=== PATIENT | male | born 1965 | race Two or more races ===

== ENCOUNTER 2024-05-16 09:50 | Inpatient (IN) | payer OTHER ==
[~2024-05-16] VITALS: Ht 172.7 cm; Wt 70.8 kg
[2024-05-16 10:31] LABS: BASOPHILS % (AUTO) 0.4 % (0.0-2.0); EOSINOPHILS # (AUTO) 0.1 K/uL (0.0-0.7); EOSINOPHILS % (AUTO) 0.8 % (0.0-6.0); HEMATOCRIT 45 % (39-51); HEMOGLOBIN 15.1 g/dL (13.5-17.5); LYMPHOCYTES # (AUTO) 3.2 K/uL (0.8-4.8); LYMPHOCYTES % (AUTO) 37.2 % (20.0-44.0); MEAN CORPUSCULAR HEMOGLOBIN 32 PG (26.0-33.0); MEAN CORPUSCULAR HGB CONC 34 g/dl (31.0-36.0); MEAN CORPUSCULAR VOLUME 96 fL (80-96); MONOCYTES # (AUTO) 0.5 K/uL (0.1-1.30); MONOCYTES % (AUTO) 5.9 % (2.0-12.0); NEUTROPHILS # (AUTO) 4.7 K/uL (1.8-8.9); NEUTROPHILS % (AUTO) 55.7 % (43.0-81.0); PLATELET COUNT (AUTO) 260 K/uL (150-450); RED BLOOD CELL COUNT(AUTO) 4.67 MIL/uL (4.5-6.0); RED CELL DISTRIBUTION WIDTH 13.9 % (11.5-15.0); WHITE BLOOD COUNT (AUTO) 8.5 K/uL (4.3-11.0)
[2024-05-16 10:43] LABS: INR 1.07 (0.91-1.10); PARTIAL THROMBOPLASTIN TIME 25.7 SEC (24.3-34.3); PROTHROMBIN TIME 11.3 SECS (9.2-11.1)
[2024-05-16 10:48] LABS: CALCIUM, SERUM 9.3 mg/dL (8.5-10.1); CARBON DIOXIDE 30 mmol/L (21-32); CHLORIDE 104 mmol/L (98-107); CREATININE 1.3 mg/dL (0.6-1.3); GLUCOSE 94 mg/dL (74-106); SODIUM SERUM 140 mmol/L (136-145); UREA NITROGEN, BLOOD 11 mg/dL (7-18)
[2024-05-16] MEDS ORDERED: ASPIRIN 325 MG TABLET ONE (11:04)
[2024-05-16] MEDS: ASPIRIN EC 325 MG TABLET.DR PO ONE (11:07)
[2024-05-16] MEDS ORDERED: ESCI20TA PO (11:45)
[2024-05-16] MEDS ORDERED: TRAZ150T75 PO (11:45)
[2024-05-16 12:00] VITALS: BP 140/89; TEMP 98.2; O2SAT 97
[2024-05-16] MEDS ORDERED: MAGNESIUM HYDROXIDE 30 ML UDC PO PRN (13:00)
[2024-05-16] MEDS ORDERED: ONDANSETRON HCL/PF 4 MG/2 ML VIAL IVP PRN (13:00)
[2024-05-16] MEDS ORDERED: Z GUARD REMEDY 4 OZ OINT TP PRN (13:00)
[2024-05-16] MEDS ORDERED: ACETAMINOPHEN 325 MG TABLET PO PRN (13:00)
[2024-05-16] MEDS ORDERED: MAG HYDROX/AL HYDROX/SIMETH 30 ML UDC PO PRN (13:00)
[2024-05-16 13:55] VITALS: BP 140/89; TEMP 98.2; O2SAT 98
[2024-05-16 13:59] LABS: CALCIUM, SERUM 9.2 mg/dL (8.5-10.1); CREATININE 1.2 mg/dL (0.6-1.3); POTASSIUM 4.3 mmol/L (3.5-5.1)
[2024-05-16 14:04] LABS: ALBUMIN 3.8 g/dL (3.4-5.0); BILIRUBIN,TOTAL 0.7 mg/dL (0.2-1.0); TOTAL PROTEIN, SERUM 7.3 g/dL (6.4-8.2)
[2024-05-16 14:42] LABS: THYROID STIMULATING HORMONE 3.5 uIU/mL (0.358-3.74)
[2024-05-16] MEDS: ENOXAPARIN SODIUM 40 MG/0.4 ML DISP.SYRIN SQ SCH (14:49)
[2024-05-16 16:00] VITALS: BP 134/87; TEMP 97.4; O2SAT 98
[2024-05-16] MEDS: BLOOD SUGAR DIAGNOSTIC 1 EACH STRIP IN SCH ×2 (17:40)
[2024-05-16] MEDS: SIMVASTATIN 40 MG TABLET PO SCH (22:00)
[2024-05-16] MEDS: SIMVASTATIN 20 MG TABLET ONE (22:14)
[2024-05-17 06:55] LABS: BASOPHILS % (AUTO) 0.3 % (0.0-2.0); EOSINOPHILS # (AUTO) 0.1 K/uL (0.0-0.7); EOSINOPHILS % (AUTO) 1.5 % (0.0-6.0); HEMATOCRIT 43 % (39-51); HEMOGLOBIN 14.7 g/dL (13.5-17.5); LYMPHOCYTES # (AUTO) 3.4 K/uL (0.8-4.8); LYMPHOCYTES % (AUTO) 41.5 % (20.0-44.0); MEAN CORPUSCULAR HEMOGLOBIN 33 PG (26.0-33.0); MEAN CORPUSCULAR HGB CONC 34 g/dl (31.0-36.0); MEAN CORPUSCULAR VOLUME 96 fL (80-96); MONOCYTES # (AUTO) 0.5 K/uL (0.1-1.30); MONOCYTES % (AUTO) 6.7 % (2.0-12.0); NEUTROPHILS # (AUTO) 4.1 K/uL (1.8-8.9); PLATELET COUNT (AUTO) 237 K/uL (150-450); RED BLOOD CELL COUNT(AUTO) 4.49 MIL/uL (4.5-6.0); RED CELL DISTRIBUTION WIDTH 13.8 % (11.5-15.0); WHITE BLOOD COUNT (AUTO) 8.1 K/uL (4.3-11.0)
[2024-05-17 06:59] LABS: CALCIUM, SERUM 8.9 mg/dL (8.5-10.1); CREATININE 1.2 mg/dL (0.6-1.3); PHOSPHORUS 3.1 mg/dL (2.5-4.9); POTASSIUM 4.2 mmol/L (3.5-5.1)
[2024-05-17 08:00] VITALS: BP 115/78; TEMP 98.2; O2SAT 97
[2024-05-17] MEDS: ASPIRIN EC 325 MG TABLET.DR PO SCH (08:13)
[2024-05-17] MEDS ORDERED: IOHEXOL-350 100 ML VIAL IV ONE (11:02)
[2024-05-17] MEDS ORDERED: CT SWABBABLE VALVE TRANS SET 1 EA INFUS.SET MC ONE (11:03)
[2024-05-17 12:05] LABS: THYROID STIMULATING HORMONE 2.7 uIU/mL (0.358-3.74)
[2024-05-17 12:18] VITALS: BP 127/79; TEMP 97.7; O2SAT 99
[2024-05-17 16:00] VITALS: BP 129/74; TEMP 98.4; O2SAT 98
[2024-05-17 20:00] VITALS: BP 122/86; TEMP 98.2; O2SAT 95
[2024-05-17] MEDS: SIMVASTATIN 20 MG TABLET PO SCH (21:55)
[2024-05-18] VITALS: BP 119/73; TEMP 98.1; O2SAT 98
[2024-05-18 05:10] VITALS: BP 115/73; TEMP 98.4; O2SAT 95
[2024-05-18 07:04] LABS: BASOPHILS % (AUTO) 0.2 % (0.0-2.0); EOSINOPHILS # (AUTO) 0.1 K/uL (0.0-0.7); EOSINOPHILS % (AUTO) 1.6 % (0.0-6.0); HEMATOCRIT 45 % (39-51); HEMOGLOBIN 14.8 g/dL (13.5-17.5); LYMPHOCYTES # (AUTO) 2.9 K/uL (0.8-4.8); LYMPHOCYTES % (AUTO) 39.1 % (20.0-44.0); MEAN CORPUSCULAR HEMOGLOBIN 31 PG (26.0-33.0); MEAN CORPUSCULAR HGB CONC 33 g/dl (31.0-36.0); MEAN CORPUSCULAR VOLUME 94 fL (80-96); MONOCYTES # (AUTO) 0.6 K/uL (0.1-1.30); MONOCYTES % (AUTO) 7.8 % (2.0-12.0); NEUTROPHILS # (AUTO) 3.9 K/uL (1.8-8.9); NEUTROPHILS % (AUTO) 51.3 % (43.0-81.0); PLATELET COUNT (AUTO) 250 K/uL (150-450); RED BLOOD CELL COUNT(AUTO) 4.71 MIL/uL (4.5-6.0); RED CELL DISTRIBUTION WIDTH 13.5 % (11.5-15.0); WHITE BLOOD COUNT (AUTO) 7.5 K/uL (4.3-11.0)
[2024-05-18 07:07] LABS: CALCIUM, SERUM 9.2 mg/dL (8.5-10.1); CREATININE 1.2 mg/dL (0.6-1.3); POTASSIUM 3.9 mmol/L (3.5-5.1)
[2024-05-18 07:30] VITALS: BP 117/88; TEMP 97.9; O2SAT 97
[2024-05-18 08:07] LABS: FOLIC ACID 5.5 ng/mL (>3.0)
[2024-05-18] MEDS: ASPIRIN EC 325 MG TABLET.DR PO SCH (08:55)
[2024-05-18] MEDS ORDERED: SIMV-46 PO (10:39)
[2024-05-18] MEDS ORDERED: ASPI-1100 PO (10:39)
[2024-05-19] MEDS ORDERED: CYANOCOBALAMIN 1,000 MCG/ML VIAL IM SCH (09:00)
== END 2024-05-18 14:00 | disposition home or self-care (01) | DRG 66 ==
LOC: ER 09:56 → TELE 11:35 → MED 05-18 11:59
PROVIDERS: ADMIT Internal Medicine; ATTEND Internal Medicine
DX: I63.9 Cerebral infarction, unspecified (principal); R29.704 NIHSS score 4; R29.810 Facial weakness; R47.81 Slurred speech; F32.9 Major depressive disorder, single episode, unspecified; H51.0 Palsy (spasm) of conjugate gaze; Z82.3 Family history of stroke; G83.21 Monoplegia of upper limb affecting right dominant side
CPT/HCPCS: 36415; 70450-TC; 70496-TC; 70498-TC; 71045-TC; 80048-TC; 80053-TC; 80061-TC; 82607-TC; 82962-TC; 83921; 84100-TC; 84425; 84443-TC; 84484-TC; 85025-TC; 85652-TC; 85730-TC; 92507-TC; 92521; 92526; 92611-TC; 93307-TC; 97110-TC; 97112-TC; 97116-TC; 97530-TC; 97535-TC; G0378; J1650; J3420; Q9967